=== PATIENT | male | born 1990 | race African-American/Black ===

== ENCOUNTER 2016-08-13 18:05 | Emergency (ER) | payer SELFPAY ==
--- NOTE | 2016-08-13 18:15 | NUR ---
PATIENT LEFT WITHOUT BEING SEEN BY DR. VAUGHAN. NO FURTHER CARE PROVIDED FOR PATIENT.
== END 2016-08-13 18:15 | disposition left against medical advice (07) ==
LOC: MED 18:05
DX: R11.10 Vomiting, unspecified (principal); Z53.21 Procedure and treatment not carried out due to patient leaving prior to being seen by health care provider